=== PATIENT | male | born 1980 | race African-American/Black ===

== ENCOUNTER 2019-01-03 09:43 | Emergency (ER) | payer OTHER ==
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
[2019-01-03 11:24] VITALS: BP 113/95
== END 2019-01-03 11:27 | disposition home or self-care (01) ==
LOC: ER 09:43
DX: M25.572 Pain in left ankle and joints of left foot (principal); V87.7XXA Person injured in collision between other specified motor vehicles (traffic), initial encounter; I10 Essential (primary) hypertension
CPT/HCPCS: 99283